=== PATIENT | male | born 1945 | race Caucasian/White ===

== ENCOUNTER 2016-07-29 08:30 | Emergency (ER) | payer MEDICARE, OTHER ==
[~2016-07-29] VITALS: Ht 177.8 cm; Wt 87.0 kg
[2016-07-29 08:34] VITALS: BP 155/90; PULSE 80; RESP 16; TEMP 97.9; O2SAT 97
[2016-07-29 08:46] VITALS: BP 149/67; PULSE 80; RESP 18; O2SAT 97
[2016-07-29] MEDS ORDERED: ASPI-110 PO (08:55)
[2016-07-29] MEDS ORDERED: [UNRECOGNIZED DRUG - OTHER] PO (08:55)
[2016-07-29] MEDS ORDERED: REDCAP2 PO (08:55)
[2016-07-29] MEDS ORDERED: FISH120014 PO (08:55)
[2016-07-29] MEDS ORDERED: VITA20003 PO (08:55)
[2016-07-29] MEDS ORDERED: HYDR12.57 PO (08:55)
[2016-07-29] MEDS ORDERED: LOSA50TA PO (08:55)
[2016-07-29] MEDS ORDERED: FLUO10TA PO (08:55)
[2016-07-29] MEDS ORDERED: DICYCLOMINE HCL 10 MG CAP PO ONE (09:00)
[2016-07-29] MEDS ORDERED: ONDANSETRON HCL 4 MG/2 ML VIAL IVP ONE (09:00)
[2016-07-29] MEDS ORDERED: SODIUM CHLORIDE 0.9% FLUSH 5 ML FLUSH IVF PRN (09:00)
[2016-07-29] MEDS ORDERED: SODIUM CHLOR 0.9% 1000 ML INJ 1,000 ML IV SCH (09:00)
[2016-07-29] MEDS ORDERED: SODIUM CHLOR 0.9% 1000 ML INJ 1,000 ML IV ONE (09:00)
[2016-07-29] MEDS ORDERED: FAMOTIDINE 20 MG/2 ML VIAL IV PUSH ONE (09:00)
--- NOTE | 2016-07-29 09:24 | PD ---
HPI Chief Complaint: Abdominal Pain Time Seen by Provider: 08:52 Travel History International Travel<30 days: No Contact w/Intl Traveler<30days: No Traveled to known affect area: No History of Present Illness HPI Patient is a 70-year-old male who presents to emergency room with complaints of abdominal pain. Patient reports that he has not been feeling well for the past 2 days, reports that he has been feeling nauseous and has been having multiple episodes of diarrhea. Patient reports that he woke up around 4:15 this morning and began to have increased pain and cramping to the lower abdomen. Patient reports that he had 3 episodes of diarrhea and felt nauseous, reports that this is when he decided to go to the emergency room. Patient denies any sick contacts, denies any recent travels or trips. Patient reports no recent illnesses or denies any recent ingestion of antibiotics. Reports that his has been eating similar foods and has been asymptomatic. Patient denies chest pain or shortness of breath at this time. Patient reports that upon presentation to the emergency room, he has near complete resolution of his symptoms. Patient reports that at this time, he feels a little nauseous, denies any abdominal pain. Patient denies fevers, reports that he has been having chills. Denies dysuria, urinary urgency or frequency. PFSH Past Medical History Hx Anticoagulant Therapy: Yes (81 mg asa) Depression: Yes Cancer: Yes (PROSTRATE 2013) Cardiovascular Problems: Yes (htn) High Cholesterol: Yes Diverticulitis: Yes Hypertension: Yes Tetanus Vaccination: < 5 Years Influenza Vaccination: Yes Past Surgical History Abdominal Surgery: Yes (REPAIR OF INTESTINAL "HOLE") Eye Surgery: Yes (CATARACT SURGERY BILATERAL EYES) Prostatectomy: Yes Family History Family History: Negative Social History Alcohol Use: Yes (DAILY) Tobacco Use: No Substance Use: No Allergies-Medications (Allergen,Severity, Reaction): Coded Allergies: Lexapro (Verified Allergy, Severe, hyperactive, 07/29/16) Reported Meds & Prescriptions Reported Meds & Active Scripts Active Zofran Odt (Ondansetron Odt) 4 Mg Tab 4 Mg SL Q6HR PRN Bentyl (Dicyclomine HCl) 20 Mg Tab 20 Mg PO TID 7 Days Reported Aspirin 81 (Aspirin) 81 Mg Tabdr 81 Mg PO DAILY Vitamin D (Cholecalciferol) 2,000 Unit Tab 1 Tab PO DAILY Red Yeast Rice (Red Yeast Rice Extract) 600 Mg Cap 1 Cap PO DAILY Fish Oil ([place]-3 Fatty Acids) 1,200 Mg Cap 1 Cap PO DAILY [Fluxomide] 500 Mg PO DAILY Fluoxetine (Fluoxetine HCl) 10 Mg Tab 10 Mg PO DAILY Hydrochlorothiazide 12.5 Mg Cap 12.5 Mg PO DAILY Losartan (Losartan Potassium) 50 Mg Tab 50 Mg PO DAILY Review of Systems General / Constitutional: Positive: Chills, No: Fever Eyes: No: Visual changes HENT: No: Headaches Cardiovascular: No: Chest Pain or Discomfort, Palpitations, Tachycardia, Diaphoresis Respiratory: No: Shortness of Breath Gastrointestinal: Positive: Nausea, Diarrhea, Abdominal Pain, No: Vomiting, Constipation Genitourinary: No: Dysuria Musculoskeletal: No: Pain Skin: No Rash Neurologic: No: Weakness Psychiatric: No: Depression Endocrine: No: Polydipsia Hematologic/Lymphatic: No: Easy Bruising Physical Exam Narrative GENERAL: No acute distress, nontoxic SKIN: Warm and dry. HEAD: Atraumatic. Normocephalic. EYES: No injection or drainage. ENT: No nasal bleeding or discharge. Mucous membranes pink and moist. NECK: Trachea midline. No JVD. CARDIOVASCULAR: Regular rate and rhythm. No murmur appreciated. RESPIRATORY: No accessory muscle use. Clear to auscultation. Breath sounds equal bilaterally. GASTROINTESTINAL: Abdomen soft, non-tender, nondistended. MUSCULOSKELETAL: No obvious deformities. No clubbing. No cyanosis. No edema. NEUROLOGICAL: Awake and alert. Motor grossly within normal limits. Normal speech. Data Data Last Documented VS Vital Signs Date Time Temp Pulse Resp B/P Pulse Ox O2 Delivery O2 Flow Rate FiO2 07/29/16 10:27 69 20 121/65 97 Room Air 07/29/16 08:34 97.9 Orders Complete Blood Count With Diff (07/29/16 09:00) Comprehensive Metabolic Panel (07/29/16 09:00) Lipase (07/29/16 09:00) Prothrombin Time / Inr (Pt) (07/29/16 09:00) Act Partial Throm Time (Ptt) (07/29/16 09:00) Urinalysis - C+S If Indicated (07/29/16 09:00) Iv Access Insert/Monitor (07/29/16 09:00) Ecg Monitoring (07/29/16 09:00) Ondansetron Inj (Zofran Inj) (07/29/16 09:00) Sodium Chlor 0.9% 1000 Ml Inj (Ns 1000 M (07/29/16 09:00) Sodium Chloride 0.9% Flush (Ns Flush) (07/29/16 09:00) Electrocardiogram (07/29/16 09:00) Famotidine Inj (Pepcid Inj) (07/29/16 09:00) Dicyclomine (Bentyl) (07/29/16 09:00) Sodium Chlor 0.9% 1000 Ml Inj (Ns 1000 M (07/29/16 09:00) Labs Laboratory Tests Test 07/29/16 09:15 White Blood Count 8.5 TH/MM3 Red Blood Count 4.51 MIL/MM3 Hemoglobin 14.3 GM/DL Hematocrit 41.9 % Mean Corpuscular Volume 92.8 FL Mean Corpuscular Hemoglobin 31.6 PG Mean Corpuscular Hemoglobin 34.1 % Concent Red Cell Distribution Width 12.2 % Platelet Count 245 TH/MM3 Mean Platelet Volume 7.9 FL Neutrophils (%) (Auto) 86.2 % Lymphocytes (%) (Auto) 3.7 % Monocytes (%) (Auto) 9.2 % Eosinophils (%) (Auto) 0.7 % Basophils (%) (Auto) 0.2 % Neutrophils # (Auto) 7.3 TH/MM3 Lymphocytes # (Auto) 0.3 TH/MM3 Monocytes # (Auto) 0.8 TH/MM3 Eosinophils # (Auto) 0.1 TH/MM3 Basophils # (Auto) 0.0 TH/MM3 CBC Comment DIFF FINAL Differential Comment Prothrombin Time 10.8 SEC Prothromb Time International 1.0 RATIO Ratio Activated Partial 26.2 SEC Thromboplast Time Urine Collection Type CLEAN CATCH Urine Color YELLOW Urine Turbidity CLEAR Urine pH 5.5 Urine Specific [place] 1.027 Urine Protein NEG mg/dL Urine Glucose (UA) NEG mg/dL Urine Ketones 15 mg/dL Urine Occult Blood NEG Urine Nitrite NEG Urine Bilirubin NEG Urine Leukocyte Esterase NEG Urine WBC 0-2 /hpf Urine Squamous Epithelial 0-5 /hpf Cells Microscopic Urinalysis Comment CULT NOT INDICATED Sodium Level 140 MEQ/L Potassium Level 3.5 MEQ/L Chloride Level 105 MEQ/L Carbon Dioxide Level 28.4 MEQ/L Anion Gap 7 MEQ/L Blood Urea Nitrogen 15 MG/DL Creatinine 0.94 MG/DL Estimat Glomerular Filtration 80 ML/MIN Rate Random Glucose 108 MG/DL Calcium Level 8.6 MG/DL Total Bilirubin 0.8 MG/DL Aspartate Amino Transf 12 U/L (AST/SGOT) Alanine Aminotransferase 23 U/L (ALT/SGPT) Alkaline Phosphatase 72 U/L Total Protein 7.2 GM/DL Albumin 3.7 GM/DL Lipase 144 U/L MDM Medical Decision Making Medical Screen Exam Complete: Yes Emergency Medical Condition: Yes Interpretation(s) EKG at 908: Normal sinus rhythm at 76 bpm, QT/QTc 386/414, no acute ST or T- wave changes, PVCs are present Vital Signs Date Time Temp Pulse Resp B/P Pulse Ox O2 Delivery O2 Flow Rate FiO2 07/29/16 08:46 80 18 149/67 97 Room Air 07/29/16 08:34 97.9 80 16 155/90 97 CBC & BMP Diagram 07/29/16 09:15 Differential Diagnosis Gastroenteritis, gastritis, colitis, ACS, arrhythmia, electrolyte abnormality Narrative Course Patient is a 70-year-old male who presents to emergency room with complaints of nausea, diarrhea and lower abdominal pain past 2 days. Patient reports that symptoms progressed and worsened this morning around 4:15 AM - reports at this time, he has severe lower abdominal pain and cramping and had 3 episodes of diarrhea. Patient with no abdominal pain in the emergency room at this time, reports sensation of nausea. Patient reports that he feels almost completely better at this time. Patient nontoxic on evaluation. Vital signs are stable. Plan to obtain labs and hydrate patient and perform serial abdominal re- evaluations. Patient re-evaluated, patient feeling much better. Abdomen is soft, nontender, nondistended, no peritoneal signs. Reviewed all labs and studies with patient in detail. Discussed signs and symptoms of acute abdomen with patient in detail. Discussed signs and symptoms of when to return to the emergency room. Patient will follow-up with his primary care doctor. Encouraged rest, increase hydration. Patient thankful for care Diagnosis Primary Impression: Abdominal pain Qualified Code: R10.30 - Lower abdominal pain Additional Impressions: Nausea Diarrhea Qualified Code: R19.7 - Diarrhea, unspecified type Dehydration Patient Instructions: General Instructions Additional Instructions: Please return to ER as needed Please make sure you drink plenty of fluids and stay hydrated Return to ER if symptoms return or progress Please call your primary care doctor first thing in the morning for earliest follow-up. Med/Other Pt SpecificInfo: Prescription(s) given Scripts Ondansetron Odt (Zofran Odt)4 Mg Tab4 Mg SL Q6HR PRN (Nausea/Vomiting) #30 TAB Ref 0 Prov:Liliana Santana DO 07/29/16 Dicyclomine (Bentyl)20 Mg Tab20 Mg PO TID 7 Days Ref 0 Prov:Liliana Santana DO 07/29/16 Disposition: 01 DISCHARGE HOME Condition: Stable Liliana Santana DO Jul 29, 2016 09:24
[2016-07-29 09:28] LABS: BLOOD, URINE NEG (NEG); GLUCOSE,URINE NEG (NEG); KETONE, URINE 15 mg/dL (NEG); NITRITE,URINE NEG (NEG); PH, URINE 5.5 (5.0-8.5)
[2016-07-29 09:30] LABS: METHOD OF COLLECTION CLEAN CATCH; URINE COLOR YELLOW (YELLW/STRAW)
[2016-07-29 09:31] LABS: AUTOMATED NEUTROPHIL # 7.3 TH/MM3 (1.8-7.7); BASOPHIL % 0.2 % (0.0-2.0); EOSINOPHIL # 0.1 TH/MM3 (0-0.4); EOSINOPHIL % 0.7 % (0.0-4.0); HEMATOCRIT 41.9 % (39.0-51.0); HEMO FLAGS DIFF FINAL; LYMPH % 3.7 % (9.0-44.0); LYMPHOCYTE # 0.3 TH/MM3 (1.0-4.8); MEAN CELL VOLUME 92.8 FL (80.0-100.0); MEAN CORPUSCULAR HEMOGLOBIN 31.6 PG (27.0-34.0); MEAN CORPUSCULAR HGB CONC 34.1 % (32.0-36.0); MONO % 9.2 % (0.0-8.0); NEUT % 86.2 % (16.0-70.0); PLATELET COUNT 245 TH/MM3 (150-450); RED BLOOD COUNT 4.51 MIL/MM3 (4.50-5.90); RED CELL DISTRIBUTION WIDTH 12.2 % (11.6-17.2); WHITE BLOOD COUNT 8.5 TH/MM3 (4.0-11.0)
[2016-07-29 09:32] LABS: COMMENT (UR) CULT NOT INDICATED; COMMENT2 (UR) MUCOUS PRESENT; CULTURE IF INDICATED CULT NOT INDICATED; SQUAMOUS EPITHELIAL CELL URINE 0-5 /hpf (0-5); WBC, URINE 0-2 /hpf (0-5)
[2016-07-29 09:39] LABS: APTT (PATIENT) 26.2 SEC (24.3-30.1); PROTHROMBIN TIME - PATIENT 10.8 SEC (9.8-11.6)
[2016-07-29 09:49] LABS: BICARBONATE 28.4 MEQ/L (21.0-32.0)
[2016-07-29 09:52] LABS: ALT (GPT) 23 U/L (12-78); GLOMERULAR FILTRATION RATE 80 ML/MIN (>89)
[2016-07-29 09:53] LABS: AST (GOT) 12 U/L (15-37)
[2016-07-29 09:54] LABS: ANION GAP 7 MEQ/L (5-15); CHLORIDE 105 MEQ/L (98-107); POTASSIUM 3.5 MEQ/L (3.5-5.1); SODIUM (NA) 140 MEQ/L (136-145); TOTAL BILIRUBIN ADULT 0.8 MG/DL (0.2-1.0)
[2016-07-29 09:55] LABS: ALKALINE PHOSPHATASE 72 U/L (45-117)
[2016-07-29 10:00] LABS: BLOOD UREA NITROGEN 15 MG/DL (7-18)
[2016-07-29 10:27] VITALS: BP 121/65; PULSE 69; RESP 20; O2SAT 97
[2016-07-29] MEDS ORDERED: BENT20TA PO (10:32)
[2016-07-29] MEDS ORDERED: ZOFR4TAB3 SL (10:32)
--- NOTE | 2016-07-29 12:25 | EKG ---
Date Performed: 07/29/2016 Time Performed: 09:08:30 PTAGE: 70 years EKG: Sinus rhythm with PVC(s) with 1st degree A-V block Leftward axis Inferior infarct - age undetermined Lateral T wa ve changes may be due to myocardial ischemia Abnormal ECG NO PREVIOUS TRACING DOCTOR: Davi Molina Interpretating Date/Time 07/29/2016 12:24:22
== END 2016-07-29 10:48 | disposition home or self-care (01) ==
LOC: PHED 08:30
DX: R19.7 Diarrhea, unspecified (principal); R11.0 Nausea; E86.0 Dehydration; R10.30 Lower abdominal pain, unspecified
CPT/HCPCS: 80053; 81001; 83690; 85025; 85610; 85730; 93005; 96361; 96374; 96375; 99284; J2405; J7030

== ENCOUNTER 2017-07-09 19:05 | Emergency (ER) | payer MEDICARE, OTHER ==
[~2017-07-09] VITALS: Ht 177.8 cm; Wt 85.9 kg
[~2017-07-09 19:05] MED LIST: ASPI1TAB57 PO; BENT20TA PO; FISH120014 PO; FLUO10TA PO; HYDR12.57 PO; LOSA50TA PO; REDCAP2 PO; VITA20003 PO; ZOFR4TAB3 SL; [UNRECOGNIZED DRUG - OTHER] PO
[2017-07-09 19:22] VITALS: BP 181/86; PULSE 81; RESP 18; TEMP 97.2; O2SAT 96
--- NOTE | 2017-07-09 19:42 | PD ---
HPI Chief Complaint: Complaint Time Seen by Provider: 19:30 Travel History International Travel<30 days: No Contact w/Intl Traveler<30days: No Traveled to known affect area: No History of Present Illness HPI 71-year-old male with history of prostate cancer status post resection 4 years ago, followed by urologist Dr. Mas, on Leupron, here for evaluation of gross hematuria and inability to urinate. The patient first noticed an episode of hematuria couple days ago which cleared after one episode. He again noticed some hematuria yesterday evening, and has been unable to urinate since this morning. He feels as though he needs to urinate and is complaining of lower abdominal pain and distention. Pain is moderate to severe, constant, worse with movement and palpation. He has also noted slight bilateral flank discomfort. No fevers or chills. No nausea or vomiting. He is not on any antiplatelets or anticoagulants. He reports having a PET scan of his chest and abdomen within the last 6 months that showed no metastatic lesions. PFSH Past Medical History Hx Anticoagulant Therapy: Yes (81 mg asa) Depression: Yes Cancer: Yes (PROSTRATE 2012) Cardiovascular Problems: Yes (htn) High Cholesterol: Yes Chemotherapy: Yes Diverticulitis: Yes Hypertension: Yes Past Surgical History Abdominal Surgery: Yes (REPAIR OF INTESTINAL "HOLE") Eye Surgery: Yes (CATARACT SURGERY BILATERAL EYES) Prostatectomy: Yes Social History Alcohol Use: Yes (DAILY) Tobacco Use: No Substance Use: No Allergies-Medications (Allergen,Severity, Reaction): Coded Allergies: escitalopram (Unverified Allergy, Severe, hyperactive, 07/09/17) Reported Meds & Prescriptions Reported Meds & Active Scripts Active Reported Vitamin D (Cholecalciferol) 2,000 Unit Tab 1 Tab PO DAILY Red Yeast Rice (Red Yeast Rice Extract) 600 Mg Cap 1 Cap PO DAILY Fluoxetine (Fluoxetine HCl) 10 Mg Tab 10 Mg PO DAILY Hydrochlorothiazide 12.5 Mg Cap 12.5 Mg PO DAILY Losartan (Losartan Potassium) 50 Mg Tab 50 Mg PO DAILY Review of Systems Except as stated in HPI: all other systems reviewed are Neg Physical Exam Narrative GENERAL: Well-developed, well-nourished, no apparent distress. SKIN: Focused skin assessment warm/dry. No pallor. HEAD: Atraumatic. Normocephalic. EYES: Pupils equal and round. No scleral icterus. No injection or drainage. ENT: No nasal bleeding or discharge. Mucous membranes pink and moist. NECK: Trachea midline. No JVD. CARDIOVASCULAR: Regular rate and rhythm. RESPIRATORY: No accessory muscle use. Clear to auscultation. Breath sounds equal bilaterally. GASTROINTESTINAL: Abdomen soft, distended with palpable distended bladder that is moderately tender, no peritoneal signs. MUSCULOSKELETAL: No obvious deformities. No clubbing. No cyanosis. No edema. NEUROLOGICAL: Awake and alert. No obvious cranial nerve deficits. Motor grossly within normal limits. Normal speech. PSYCHIATRIC: Appropriate mood and affect; insight and judgment normal. Data Data Last Documented VS Vital Signs Date Time Temp Pulse Resp B/P (MAP) Pulse Ox O2 Delivery O2 Flow Rate FiO2 07/09/17 21:51 69 16 130/68 (88) 97 Room Air 07/09/17 19:22 97.2 Orders Orders Complete Blood Count With Diff (07/09/17 19:37) Comprehensive Metabolic Panel (07/09/17 19:37) Prothrombin Time / Inr (Pt) (07/09/17 19:37) Act Partial Throm Time (Ptt) (07/09/17 19:37) Iv Access Insert/Monitor (07/09/17 19:37) Ecg Monitoring (07/09/17 19:37) Oximetry (07/09/17 19:37) Sodium Chloride 0.9% Flush (Ns Flush) (07/09/17 19:45) Bladder/Catheter Irrigation (07/09/17 19:37) Lidocaine 2% Jelly (Xylocaine 2% Jelly) (07/09/17 19:45) Urinalysis - C+S If Indicated (07/09/17 20:03) Ct Abd/Pel W Iv Contrast(Rout) (07/09/17 ) Iohexol 350 Inj (Omnipaque 350 Inj) (07/09/17 21:39) Cbc No Diff, Includes Plts (07/09/17 22:30) Labs Laboratory Tests Test 07/09/17 19:45 07/09/17 20:00 07/09/17 22:32 Urine Collection Type CATH Urine Color ORANGE Urine Turbidity MARKED Urine pH 7.0 Urine Specific [place] 1.016 Urine Protein 100 mg/dL Urine Glucose (UA) NEG mg/dL Urine Ketones NEG mg/dL Urine Occult Blood LARGE Urine Nitrite NEG Urine Bilirubin NEG Urine Leukocyte Esterase NEG Urine RBC INNUM /hpf Urine Squamous Epithelial Cells 0-5 /hpf Urine Amorphous Sediment MOD Urine Mucus OCC /lpf Microscopic Urinalysis Comment CATH-CULT NOT IND White Blood Count 5.7 TH/MM3 8.8 TH/MM3 Red Blood Count 4.17 MIL/MM3 3.87 MIL/MM3 Hemoglobin 12.7 GM/DL 12.2 GM/DL Hematocrit 39.4 % 36.7 % Mean Corpuscular Volume 94.4 FL 94.8 FL Mean Corpuscular Hemoglobin 30.4 PG 31.5 PG Mean Corpuscular Hemoglobin Concent 32.1 % 33.2 % Red Cell Distribution Width 12.4 % 12.7 % Platelet Count 283 TH/MM3 256 TH/MM3 Mean Platelet Volume 7.7 FL 7.3 FL Neutrophils (%) (Auto) 69.9 % Lymphocytes (%) (Auto) 15.8 % Monocytes (%) (Auto) 10.4 % Eosinophils (%) (Auto) 1.0 % Basophils (%) (Auto) 2.9 % Neutrophils # (Auto) 3.9 TH/MM3 Lymphocytes # (Auto) 0.9 TH/MM3 Monocytes # (Auto) 0.6 TH/MM3 Eosinophils # (Auto) 0.1 TH/MM3 Basophils # (Auto) 0.2 TH/MM3 CBC Comment DIFF FINAL Differential Comment Prothrombin Time 10.4 SEC Prothromb Time International Ratio 1.0 RATIO Activated Partial Thromboplast Time 23.8 SEC Blood Urea Nitrogen 19 MG/DL Creatinine 1.00 MG/DL Random Glucose 101 MG/DL Total Protein 7.0 GM/DL Albumin 3.7 GM/DL Calcium Level 9.8 MG/DL Alkaline Phosphatase 56 U/L Aspartate Amino Transf (AST/SGOT) 15 U/L Alanine Aminotransferase (ALT/SGPT) 23 U/L Total Bilirubin 0.4 MG/DL Sodium Level 141 MEQ/L Potassium Level 4.0 MEQ/L Chloride Level 104 MEQ/L Carbon Dioxide Level 27.8 MEQ/L Anion Gap 9 MEQ/L Estimat Glomerular Filtration Rate 74 ML/MIN [facility] Medical Decision Making Medical Screen Exam Complete: Yes Emergency Medical Condition: Yes Differential Diagnosis Hematuria, urinary retention, UTI, cancer Narrative Course Bedside transabdominal ultrasound using the curvilinear ultrasound probe shows a distended bladder with echogenic material within the bladder. Vital signs reviewed. CBC: WBC 5.7, hemoglobin 12.7, hematocrit 39.4, platelets 283. CMP is unremarkable. Coags are within normal limits. UA: Gordon urine, markedly turbidity, 100 protein, large occult blood, innumerable rbc's, negative nitrites, negative leukocyte esterase, not suggestive of UTI. CT abdomen pelvis: CONCLUSION: 1. Mass versus blood posteriorly in the urinary bladder. Direct visualization with cystoscopy recommended. Valadez catheter present. 2. Prostatectomy changes without evidence of a recurrent mass. 3. No obstruction or acute inflammatory changes are seen of the gastrointestinal tract. 4. Benign-appearing cysts of the liver and kidneys. 5. Gallstones without perceptible obstruction or inflammatory changes. 6. Ventral hernia, does not appear to be acutely contributory. Please see above. Three-way Valadez catheter was placed shortly after I assessed the patient with significant output of dark red urine. The patient had immediate relief of symptoms. CBI was performed and urine turn from dark red to pinkish back to light red. Repeat CBC was performed 3 hours after the first and shows a hemoglobin of 12.2. I discussed the case with on-call urologist Dr. Hair who recommends that the patient be discharged home so he can call his urologist Dr. Mas to schedule an appointment for further evaluation. Patient will be discharged home with Valadez in place and a leg bag. Both the patient and the patient's significant other were made aware of all findings and are amenable to this plan. They were advised on when to return to the emergency department. Procedures Procedure Narrative Bedside transabdominal ultrasound: Using the curvilinear ultrasound probe, the lower abdomen/bladder was evaluated and shows a large distended bladder with echogenic material within the bladder. Diagnosis Primary Impression: Gross hematuria Additional Impression: Urinary retention Referrals: Urologist 3 days Additional Instructions: Follow-up with your urologist Dr. Mas tomorrow. Return to the emergency department for worsening symptoms or any other concerns. Disposition: 01 DISCHARGE HOME Condition: Stable Jace Muñiz MD Jul 09, 2017 19:42
[2017-07-09] MEDS ORDERED: LIDOCAINE HCL 2% JELLY 5 ML SYRINGE TOPICAL ONE (19:45)
[2017-07-09] MEDS ORDERED: SODIUM CHLORIDE 0.9% FLUSH 10 ML FLUSH IV FLUSH PRN (19:45)
[2017-07-09 20:20] LABS: AUTOMATED NEUTROPHIL # 3.9 TH/MM3 (1.8-7.7); BASOPHIL # 0.2 TH/MM3 (0-0.2); BASOPHIL % 2.9 % (0.0-2.0); EOSINOPHIL # 0.1 TH/MM3 (0-0.4); HEMATOCRIT 39.4 % (39.0-51.0); HEMOGLOBIN 12.7 GM/DL (13.0-17.0); LYMPH % 15.8 % (9.0-44.0); LYMPHOCYTE # 0.9 TH/MM3 (1.0-4.8); MEAN CELL VOLUME 94.4 FL (80.0-100.0); MEAN CORPUSCULAR HEMOGLOBIN 30.4 PG (27.0-34.0); MEAN CORPUSCULAR HGB CONC 32.1 % (32.0-36.0); MEAN PLATELET VOLUME 7.7 FL (7.0-11.0); MONO % 10.4 % (0.0-8.0); MONOCYTE # 0.6 TH/MM3 (0-0.9); NEUT % 69.9 % (16.0-70.0); PLATELET COUNT 283 TH/MM3 (150-450); RED BLOOD COUNT 4.17 MIL/MM3 (4.50-5.90); RED CELL DISTRIBUTION WIDTH 12.4 % (11.6-17.2); WHITE BLOOD COUNT 5.7 TH/MM3 (4.0-11.0)
[2017-07-09 20:24] LABS: BILIRUBIN, URINE NEG (NEG); BLOOD, URINE LARGE (NEG); GLUCOSE,URINE NEG (NEG); KETONE, URINE NEG (NEG); NITRITE,URINE NEG (NEG); URINE LEUKOCYTE ESTERASE NEG (NEG)
[2017-07-09 20:25] LABS: URINE COLOR ORANGE (YELLW/STRAW)
[2017-07-09 20:26] LABS: MUCUS URINE OCC /lpf (OCC); RBC, URINE INNUM /hpf (0-3)
[2017-07-09 20:27] LABS: AMORPHOUS SEDIMENT, URINE MOD; SQUAMOUS EPITHELIAL CELL URINE 0-5 /hpf (0-5)
[2017-07-09 20:32] LABS: CHLORIDE 104 MEQ/L (98-107); SODIUM (NA) 141 MEQ/L (136-145)
[2017-07-09 20:37] LABS: ALBUMIN 3.7 GM/DL (3.4-5.0); BICARBONATE 27.8 MEQ/L (21.0-32.0); BLOOD UREA NITROGEN 19 MG/DL (7-18); CALCIUM 9.8 MG/DL (8.5-10.1); GLUCOSE,RANDOM 101 MG/DL (74-106); PROTHROMBIN TIME - PATIENT 10.4 SEC (9.8-11.6)
[2017-07-09 20:40] LABS: ALT (GPT) 23 U/L (12-78); AST (GOT) 15 U/L (15-37); GLOMERULAR FILTRATION RATE 74 ML/MIN (>89)
[2017-07-09 20:42] LABS: TOTAL BILIRUBIN ADULT 0.4 MG/DL (0.2-1.0)
[2017-07-09 20:43] LABS: ALKALINE PHOSPHATASE 56 U/L (45-117)
[2017-07-09] MEDS ORDERED: IOHEXOL 350 MG/ML 10 ML VIAL (for RAD DIAG) IVCONTRAST ONE (21:39)
[2017-07-09 21:51] VITALS: BP 130/68; PULSE 69; RESP 16; O2SAT 97
--- NOTE | 2017-07-09 22:17 | RADRPT ---
EXAM DATE/TIME: 07/09/2017 21:30 [facility] COMPARISON: No previous studies available for comparison. INDICATIONS : Gross hematuria. Urinary retention. IV CONTRAST: 100 cc Omnipaque 350 (iohexol) IV ORAL CONTRAST: No oral contrast ingested. RADIATION DOSE: 11.92 CTDIvol (mGy) MEDICAL HISTORY : Hypertension. Diverticulitis. Carcinoma, prostate. SURGICAL HISTORY : Prostatectomy. Colon perforation. ENCOUNTER: Initial ACUITY: 2 days PAIN SCALE: 8/10 LOCATION: lower quadrant TECHNIQUE: Volumetric scanning of the abdomen and pelvis was performed. Using automated exposure control and ad justment of the mA and/or kV according to patient size, radiation dose was kept as low as reasonably achievable to obtain optimal diagnostic quality images. DICOM format image data is available electro nically for review and comparison. FINDINGS: Prostatectomy changes are noted. There is a Valadez catheter in the urinary bladder. There is 12 mm thi ck intermediate attenuation mass or material posteriorly of the urinary bladder. Urinary bladder othe rwise within normal limits. A few scattered subcentimeter cysts are seen of the liver. There are small gallstones dependently at the fundus. A 15 mm gallstone is potentially impacted at the neck. No perceptible acute inflammatory changes. Scattered small benign granulomata are seen of the spleen. Pancreas and adrenal glands are normal. Th ere are scattered cysts of both kidneys measuring up to 16 mm in size. No lymphadenopathy or free fluid. No obstruction or acute inflammatory changes are seen of the gastro intestinal tract. There is an approximately 5 cm wide ventral hernia and some protruding bowel but no associated bowel obstruction. Visualized lung bases are clear. Visualized osseous structures are intact and without perceptible lyt ic or sclerotic lesion. CONCLUSION: 1. Mass versus blood posteriorly in the urinary bladder. Direct visualization with cystoscopy recomme nded. Valadez catheter present. 2. Prostatectomy changes without evidence of a recurrent mass. 3. No obstruction or acute inflammatory changes are seen of the gastrointestinal tract. 4. Benign-appearing cysts of the liver and kidneys. 5. Gallstones without perceptible obstruction or inflammatory changes. 6. Ventral hernia, does not appear to be acutely contributory. Please see above. Asa Haley MD on July 09, 2017 at 22:10 Board Certified Radiologist. This report was verified electronically.
[2017-07-09 22:42] LABS: HEMATOCRIT 36.7 % (39.0-51.0); HEMOGLOBIN 12.2 GM/DL (13.0-17.0); MEAN CELL VOLUME 94.8 FL (80.0-100.0); MEAN CORPUSCULAR HEMOGLOBIN 31.5 PG (27.0-34.0); MEAN CORPUSCULAR HGB CONC 33.2 % (32.0-36.0); MEAN PLATELET VOLUME 7.3 FL (7.0-11.0); PLATELET COUNT 256 TH/MM3 (150-450); RED BLOOD COUNT 3.87 MIL/MM3 (4.50-5.90); RED CELL DISTRIBUTION WIDTH 12.7 % (11.6-17.2); WHITE BLOOD COUNT 8.8 TH/MM3 (4.0-11.0)
== END 2017-07-10 00:01 | disposition home or self-care (01) ==
LOC: PHED 19:05
DX: R31.0 Gross hematuria (principal); R33.9 Retention of urine, unspecified; R10.9 Unspecified abdominal pain; I10 Essential (primary) hypertension; E78.00 Pure hypercholesterolemia, unspecified; F32.9 Major depressive disorder, single episode, unspecified; Z79.82 Long term (current) use of aspirin; Z85.46 Personal history of malignant neoplasm of prostate; Z87.19 Personal history of other diseases of the digestive system
CPT/HCPCS: 51700; 74177; 80053; 81001; 85025; 85027; 85610; 85730; 99284; Q9967